=== PATIENT | female | born 1980 | race Caucasian/White ===

== ENCOUNTER 2018-05-04 09:47 | Day surgery (SDC) | payer OTHER ==
[2018-04-27 11:21] VITALS: BMI 36.9
[2018-05-04] MEDS ORDERED: PROPOFOL 20 ML ONE (12:07)
[2018-05-04] MEDS ORDERED: DEXAMETHASONE SOD PHOSPHATE 4 MG/1 ML VIAL ONE (12:07)
[2018-05-04] MEDS ORDERED: MIDAZOLAM HCL 2 MG/2 ML SINGLE DOSE VIAL ONE (12:07)
[2018-05-04] MEDS ORDERED: ONDANSETRON 4 MG/2 ML VIAL ONE ×2 (12:07→14:57)
[2018-05-04] MEDS ORDERED: LIDOCAINE HCL/PF 2% SDV 5ML VIAL ONE (12:07)
--- NOTE | 2018-05-04 12:55 | OP ---
Operative Note - Note: Operative Date: 05/04/18 Pre-Operative Diagnosis: medial meniscal tear Operation: right knee arthroscopy. partial medial and lateral menisectomy Post-Operative Diagnosis: Same as Pre-op (+ lateral tear) Surgeon: Agustin Neff Anesthesiologist/DATA SCIENCES DIRECTOR: Margaret Fontaine Anesthesia: General Operative Report Dictated: Yes
[2018-05-04] MEDS ORDERED: BUPIVACAINE HCL 0.25% 125 MG/50 ML VIAL ONE (13:02)
[2018-05-04] MEDS ORDERED: EPINEPHrine 1:1,000 1 MG/1 ML - 30ML VIAL (INJECTION) ONE (13:23)
[2018-05-04] MEDS ORDERED: ceFAZolin SODIUM 1 GM VIAL ONE (13:39)
[2018-05-04] MEDS ORDERED: BUPIVACAINE HCL/PF 0.25% (2.5MG/ML) 10 ML VIAL IJ ONE (13:47)
--- NOTE | 2018-05-04 14:49 | OP ---
DATE OF OPERATION: 05/04/2018 PREOPERATIVE DIAGNOSIS: Right knee medial meniscal tear. POSTOPERATIVE DIAGNOSIS: Right knee medial and lateral meniscal tear. PROCEDURE: Right knee arthroscopy with partial medial, partial lateral meniscectomy. SURGEON: Agustin Bishop MD ANESTHESIA: General. POSTOPERATIVE CONDITION: Stable. COMPLICATIONS: None. INDICATIONS: This is a pleasant 38-year-old female who has been suffering from knee pain. MRI demonstrated medial meniscal tear. Treatment options including nonoperative versus operative management were reviewed. Operative risks were reviewed in detail including bleeding, infection, neurovascular injury, need for further surgery, postoperative pain and stiffness, progression of osteoarthritis. We discussed medical risks such as heart attack, stroke, DVT, PE, and . We discussed the use of perioperative antibiotic and DVT prophylaxis. I addressed all the patient's questions and concerns. We reviewed the rehabilitation course. She voiced understanding and elected to proceed. DESCRIPTION OF PROCEDURE: Patient was brought to the operating room where general anesthesia was administered. The right lower extremity was then prepped and draped in the usual sterile fashion. A preoperative dose of antibiotics was given, and the usual timeout procedure was performed. The right knee was then marked out, and the portals were injected subcutaneously with 0.25% Marcaine. An 11 blade was now used to establish the lateral portal. Arthroscope was passed into the knee. Examination of the patellofemoral joint demonstrated no cartilage wear. A camera was then passed down into the medial compartment. Here, a medial portal was established under spinal needle localization. The medial meniscus was examined, demonstrating a tear involving the body and posterior horn. There was also noted to be a fissure running from the [id number] direction along the lateral aspect of the medial femoral condyle. The meniscus was now debrided using a combination of meniscal biters and shaver. There was noted to be some superficial fraying on the tibial surface as well. The arthroscope was then passed to the lateral compartment. Here, a discoid lateral meniscus was encountered. There was a radial tear in the middle of the body. Utilizing a meniscal biter and shaver, this too was debrided down to a stable base. At this point, the excess fluid was withdrawn from the joint. The portals were sutured using 3-0 nylon. Sterile dressings were placed. The patient was extubated and transferred to the recovery room in stable condition. AGUSTIN BISHOP M.D. [id number]
[2018-05-04] MEDS ORDERED: KETOROLAC TROMETHAMINE 30 MG/1 ML VIAL ONE (14:57)
[2018-05-04] MEDS ORDERED: oxyCODONE HCL 5 MG TABLET PO PRN (15:10)
[2018-05-04] MEDS ORDERED: ONDANSETRON 4 MG/2 ML VIAL IVPUSH PRN (15:10)
[2018-05-04] MEDS ORDERED: LACTATED RINGERS SOLUTION 1,000 ML IV SCH (15:15)
[2018-05-04 16:45] VITALS: TEMP 97.9
[2018-05-04 16:55] VITALS: BP 108/60; PULSE 68
== END 2018-05-04 16:55 | disposition home or self-care (01) ==
LOC: FASU 09:47
PROVIDERS: ATTEND Orthopaedic Surgery Sports Medicine
PROC: 0SBC4ZZ Excision of Right Knee Joint, Percutaneous Endoscopic Approach (ICD-10-PCS; 2018-05-04)
PROC: 0SBC4ZZ Excision of Right Knee Joint, Percutaneous Endoscopic Approach (ICD-10-PCS; principal; 2018-05-04 12:00)
DX: S83.241A Other tear of medial meniscus, current injury, right knee, initial encounter (principal); S83.281A Other tear of lateral meniscus, current injury, right knee, initial encounter; X58.XXXA Exposure to other specified factors, initial encounter; Y93.9 Activity, unspecified; Y92.9 Unspecified place or not applicable
CPT/HCPCS: 84703; 94760

== ENCOUNTER 2021-03-19 07:19 | Day surgery (SDC) | payer OTHER ==
[2021-03-17 12:14] VITALS: BMI 36.3
[2021-03-19] MEDS ORDERED: BUPIVACAINE HCL/PF 0.25% (2.5MG/ML) 10 ML VIAL ONE (08:19)
[2021-03-19] MEDS ORDERED: EPINEPHrine 1:1,000 1 MG/1 ML - 30ML VIAL (INJECTION) ONE (08:19)
[2021-03-19] MEDS ORDERED: MIDAZOLAM HCL 2 MG/2 ML SINGLE DOSE VIAL ONE (09:00)
[2021-03-19] MEDS ORDERED: SUCCINYLCHOLINE CHLORIDE 200 MG/10 ML SYRINGE ONE (09:16)
[2021-03-19] MEDS ORDERED: PROPOFOL 20 ML ONE ×2 (09:16)
[2021-03-19] MEDS ORDERED: DEXAMETHASONE SOD PHOSPHATE 4 MG/1 ML VIAL ONE (09:21)
[2021-03-19] MEDS ORDERED: ceFAZolin SODIUM 1 GM VIAL ONE (09:21)
[2021-03-19] MEDS ORDERED: ONDANSETRON 4 MG/2 ML VIAL ONE (09:21)
[2021-03-19] MEDS ORDERED: KETOROLAC TROMETHAMINE 30 MG/1 ML VIAL ONE (09:25)
[2021-03-19] MEDS ORDERED: BUPIVACAINE HCL/PF 0.25% (2.5MG/ML) 10 ML VIAL IJ ONE (09:35)
[2021-03-19] MEDS ORDERED: ONDANSETRON 4 MG/2 ML VIAL IVPUSH PRN (10:05)
[2021-03-19] MEDS ORDERED: LACTATED RINGERS SOLUTION 1,000 ML IV SCH (10:15)
[2021-03-19] MEDS ORDERED: ACETAMINOPHEN INJECTION 100 ML IVPB ONE (10:31)
[2021-03-19] MEDS ORDERED: ACETAMINOPHEN 1000 MG/100 ML VIAL (NON FORMULARY) IVPB ONE (10:33)
[2021-03-19] MEDS: oxyCODONE HCL 5 MG TABLET PO PRN ×2 (10:48→12:55)
[2021-03-19] MEDS ORDERED: oxyCODONE HCL 5 MG TABLET ONE (12:53)
[2021-03-19 14:27] VITALS: TEMP 97.9
[2021-03-19 15:19] VITALS: BP 154/58; PULSE 70
== END 2021-03-19 13:30 | disposition home or self-care (01) ==
LOC: FASU 07:19
PROVIDERS: ATTEND Orthopaedic Surgery Sports Medicine
PROC: 0SBC4ZZ Excision of Right Knee Joint, Percutaneous Endoscopic Approach (ICD-10-PCS; 2021-03-19)
PROC: 0SBC4ZZ Excision of Right Knee Joint, Percutaneous Endoscopic Approach (ICD-10-PCS; principal; 2021-03-19 09:30)
DX: S83.241A Other tear of medial meniscus, current injury, right knee, initial encounter (principal); M71.21 Synovial cyst of popliteal space [Baker], right knee; X58.XXXA Exposure to other specified factors, initial encounter; Y93.9 Activity, unspecified; Y92.9 Unspecified place or not applicable; M94.261 Chondromalacia, right knee
CPT/HCPCS: 29881; G0289; 84703; 94760; J0131